=== PATIENT | male | born 1975 | race Caucasian/White ===

== ENCOUNTER 2016-10-13 14:42 | Emergency (ER) | payer OTHER ==
[2016-10-13] MEDS ORDERED: IOPAMIDOL 300 (61%) 100 ML VIAL IV ONE (14:43)
[2016-10-13] MEDS ORDERED: LACTATED RINGERS 1,000 ML ONE (15:19)
[2016-10-13 15:30] LABS: ABSOLUTE NEUTROPHIL COUNT 4.1 K/mm3 (1.8-7.7); BASO % 0.4 % (0.2-1.0); EOS # 0.1 (0.0-0.5); EOS % 1.5 % (0.9-2.9); HEMATOCRIT 49.8 % (32.0-52.0); HEMOGLOBIN 16.5 gm/l (14.0-18.0); IMM NEUT% 0.3 % (0-1); LYMPH # 2.2 (1.0-4.8); LYMPH % 31.5 % (15-45); MEAN CELL VOLUME 94.5 fl (80.0-94.0); MEAN CORPUSCULAR HEMOGLOBIN 31.3 pg (27.0-31.0); MEAN CORPUSCULAR HGB CONC 33.1 g/dl (33.0-37.0); MEAN PLATELET VOLUME 10.2 fl (7.4-10.4); MONO # 0.6 (0.0-0.8); MONO % 8.7 % (4-12); NEUT % 57.6 % (43-75); PLATELET COUNT 182 K/mm3 (130-400)
[2016-10-13 15:48] LABS: ALB/GLOB RATIO 1.5 (>1.0); ALBUMIN 4.3 gm/dL (3.5-5.7); CALCIUM 9.7 mg/dL (8.6-10.3)
--- NOTE | 2016-10-13 16:13 | CT ---
Exam: CT abdomen and pelvis with contrast COMPARISON: None INDICATION: Nausea, vomiting and diarrhea. Pain. TECHNIQUE: CT examination of the abdomen and pelvis was obtained following the administration of 100 of Isovue-300 intravenous contrast. FINDINGS: Stomach is noted to be moderately to significantly distended. Query recent meal ingestion. There are nondilated fluid-filled loops of small bowel. High density material seen within the proximal colon and appendix, which may be related to recent medicine ingestion or perhaps oral contrast at another institution. The appendix is normal. There is no bowel obstruction, free air or free intraperitoneal fluid. The liver, spleen, pancreas, kidneys, adrenal glands and gallbladder are unremarkable. The lung bases are clear. No worrisome osseous abnormality is identified. IMPRESSION: No acute findings identified to explain patient's symptoms. The stomach is distended, query recent meal ingestion. There is no evidence of gastric outlet obstruction or bowel obstruction. Otherwise unremarkable CT examination of the abdomen and pelvis. Report was uploaded to the EMR at 1609 hours 10/13/2016.
[2016-10-13 17:41] LABS: C DIFF TOXIN A/B NEGATIVE (NEGATIVE)
== END 2016-10-13 17:14 | disposition home or self-care (01) ==
LOC: ED 14:42
DX: R10.9 Unspecified abdominal pain (principal); R11.0 Nausea; R19.7 Diarrhea, unspecified
CPT/HCPCS: 83690; 87324; 87449; 85025; 87045; 87046 ×2; 87427; 80053; 87205; 87209; 87177; 74177; 99284 ×2; 96360; 96361; J7120; Q9967